=== PATIENT | female | born 1985 | race Caucasian/White ===

== ENCOUNTER 2019-08-25 17:04 | Emergency (ER) | payer OTHER, SELFPAY ==
--- NOTE | ~2019-08-25 | CT_ITS ---
EXAMINATION: CT abdomen pelvis w con DATE: 08/25/2019 18:38 INDICATION: Severe umbilical abdominal pain with nausea, vomiting and diarrhea. TECHNIQUE: Computed tomography (CT) of the abdomen and pelvis was performed with 100 mL Omnipaque-350 intravenous contrast. Automated exposure control and iterative reconstruction technique were employe d. The dose-length product was 389.09 mGy-cm. COMPARISON: 06/19/2017 FINDINGS: Lung bases are clear. Heart size is normal. No pericardial or pleural effusion. Bilateral breast impl ants. Liver, gallbladder, spleen, pancreas, bilateral adrenal glands and kidneys are normal. Bowels i ncluding the appendix are normal. Postoperative change of interval umbilical hernia mesh repair. Ther e are couple unchanged surgical clips in the anterior left abdomen. Uterus and right ovary are not vi sualized and reportedly surgically absent. The left ovary and decompressed bladder are normal. Trace amount of likely physiologic free fluid in the pelvis. No pathologically enlarged abdominal or pelvic lymphadenopathy. Couple bone islands at the intertrochanteric right femur and right supra-acetabular ilium. Bones are otherwise unremarkable. IMPRESSION: 1. No acute intra-abdominal/pelvic process. Reviewed, dictated and finalized at location A. OR CLINICAL DATA ANALYST
[2019-08-25 17:12] VITALS: BP 136/89; PULSE 117; RESP 18; TEMP 36.4; O2SAT 100
[2019-08-25 17:26] LABS: Basophils Absolute Auto 0.1 K/mm3 (0.0-0.1); Basophils Percent Auto 0.4 % (0.2-1.2); Eosinophils Percent Auto 0.1 % (0-4.4); Hematocrit 40.1 % (37.0-47.0); Hemoglobin 13.6 g/dL (12.0-15.0); Immature Granulocyte Absolute 0.05 K/mm3 (0.00-0.031); Immature Granulocyte Percent A 0.4 % (0-0.5); Lymphocytes Absolute Auto 1.68 K/mm3 (0.9-3.2); Lymphocytes Percent Auto 11.8 % (18.3-44.2); Mean Corpuscular HGB Conc 33.9 g/dl (32-36); Mean Corpuscular Hemoglobin 28.4 pg (26-34); Mean Corpuscular Volume 83.7 fl (80-100); Mean Platelet Volume 9.7 fl (7.4-10.4); Monocytes Absolute Auto 0.7 K/mm3 (0.1-0.6); Monocytes Percent Auto 4.8 % (2.6-8.5); Neutrophils Absolute Auto 11.8 K/mm3 (1.3-6.7); Neutrophils Percent Auto 82.5 % (45.5-73.1); Platelet Count Result 307 k/mm3 (150-375); Red Blood Count 4.79 M/mm3 (4.2-5.4); Red Cell Distribution Width 12.5 % (11.5-14.5); White Blood Count 14.2 K/mm3 (4.5-10.0)
[2019-08-25 17:37] LABS: Alanine Aminotransferase 21 U/L (4-35); Albumin Level 4.6 g/dL (3.5-5.1); Alkaline Phosphatase 53 U/L (38-126); Aspartate Amino Transferase 25 U/L (14-36); Bilirubin,Total 0.4 mg/dL (0.2-1.3); Blood Urea Nitrogen 12 mg/dL (7-17); Calcium 9.4 mg/dL (8.4-10.2); Carbon Dioxide 23 mmol/L (22-30); Chloride 104 mmol/L (98-107); Estimated CRCL calculation 90 ml/min; Estimated Glomerular Filt Rate > 60; Glucose 99 mg/dL (65-105); Lipase 86 U/L (23-300); Potassium 3.8 mmol/L (3.4-5.0); Sodium 140 mmol/L (137-145)
[2019-08-25] MEDS: ONDANSETRON INJ 4 MG/2 ML VIAL IV PUSH (17:52)
[2019-08-25] MEDS: FAMOTIDINE 20 MG/2 ML VIAL IV PUSH (17:52)
[2019-08-25] MEDS: SODIUM CHLORIDE 0.9% IV 1,000 ML 999 ML IV CONT (17:52)
--- NOTE | 2019-08-25 17:52 | PC.NURSE ---
Pt states that she will not be able to provide a urine sample right now. I explained that we need the urine sample JENNY and pt said she would let nursing staff know as soon as she is able to go. IVF bolus started.
--- NOTE | 2019-08-25 18:11 | ED.ABDPAIN ---
HPI - Abdominal Pain General Chief Complaint: Abdominal Pain Stated Complaint: ABD PAIN-N/V/D Time Seen by Provider: 08/25/19 17:30 Source: patient Mode of arrival: ambulatory Limitations: no limitations History of Present Illness HPI narrative: This is a 33 year old female that presents to the ER for abdominal pain x 2 days. Reports intermittent crampy abdominal pain. Associated with nausea, vomiting, and diarrhea. Reports 3 episodes of vomiting today. Reports multiple episodes of diarrhea. Denies fever, recent antibiotic use, hematochezia, dysuria or hematuria. Related Data Home Medications Medication Instructions Recorded Confirmed buspirone mg 08/25/19 Allergies Allergy/AdvReac Type Severity Reaction Status Date / Time No Known Allergies Allergy Verified 08/25/19 17:05 Review of Systems Review of Systems: Narrative: CONSTITUTIONAL: Denies fever GASTROINTESTINAL: Reports abdominal pain, nausea, vomiting, and diarrhea. GENITOURINARY: Denies dysuria or hematuria. All systems reviewed & are unremarkable except as noted in HPI and below PMFSH Past Medical History Medical History (Updated 08/25/19 @ 18:58 by Valeria Zuñiga PA-C) Endometriosis Surgical History Surgical History (Updated 08/25/19 @ 18:19 by Valeria Zuñiga PA-C) H/O tubal ligation H/O: hysterectomy Family History Family History (Updated 06/29/17 @ 17:23 by DOCTOR UNKNOWN) Father Diabetes mellitus Family history of hypercholesterolemia Mother Hypertension Social History Social History Smoking status: Never smoker Second hand tobacco smoke exposure: No Alcohol intake: current Gender identity (if verbalized by the patient): Female Exam Narrative: Exam Narrative: GENERAL: Well-appearing, well-nourished, and in no acute distress. HEAD: Normocephalic, atraumatic. EYES: EOMI. CHEST: Clear to auscultation. No respiratory distress. No wheezes rales or rhonchi HEART: Regular rate and rhythm. No murmur heard. Normal peripheral pulses. ABDOMEN: Soft, nondistended, normal active bowel sounds. Mild tenderness to palpation throughout the abdomen, without guarding EXTREMITIES: Normal range of motion. No edema. SKIN: Warm, dry, no rash. NEURO: No focal deficits. Alert and oriented x3. PSYCH: Normal mood and affect Course Vital Signs Vital signs: Vital Signs Temperature 97.6 F 08/25/19 17:12 Pulse Rate 117 H 08/25/19 17:12 Respiratory Rate 18 08/25/19 17:12 Blood Pressure 136/89 08/25/19 17:12 Pulse Oximetry 100 08/25/19 17:12 Temperature 97.6 F 08/25/19 17:12 Pulse Rate 95 08/25/19 18:46 Respiratory Rate 19 08/25/19 18:46 Blood Pressure 128/79 08/25/19 18:46 Pulse Oximetry 98 08/25/19 18:46 MDM - Abdominal Pain MDM Narrative Medical decision making narrative: Patient presents the emergency department for abdominal pain, nausea and vomiting x2 days. She is afebrile and nontoxic-appearing. No recent antibiotic use. Mildly tachycardic upon arrival, which improved after IV fluids. CBC with mild leukocytosis to 14, otherwise no acute changes. No acute changes on metabolic panel. UA with signs of dehydration, no signs of infection. CT abdomen pelvis is without acute changes. Patient was instructed on care of viral gastroenteritis. She reports improvement after IV fluids, Zofran and Pepcid. She is to follow-up with primary care doctor. She was given warnings to return to the ER Lab Data Attestation: I reviewed the patient's lab results. Result diagrams: 08/25/19 17:21 08/25/19 17:21 Labs: Lab Results 08/25/19 08/25/19 08/25/19 Range/Units 17:21 17:21 18:16 WBC 14.2 H (4.5-10.0) K/mm3 RBC 4.79 (4.2-5.4) M/mm3 Hgb 13.6 (12.0-15.0) g/dL Hct 40.1 (37.0-47.0) % MCV 83.7 (80-100) fl MCH 28.4 (26-34) pg MCHC 33.9 (32-36) g/dl RDW 12.5 (11.5-14.5) % Plt Count 307 (150-375) k/mm3 MPV 9.7 (7.4-10.
[2019-08-25 18:29] LABS: Add Urine Microscopic? YES; Appearance Urine Clear (Clear); Bilirubin Urine Negative (Negative); Blood Urine Negative (Negative); Color Urine Yellow (Yellow); Glucose Urine UA Negative (Negative); Ketones Urine 2+ mg/dL (Negative); Leukocyte Esterase Ur Negative LEU/UL (Negative); Mucus Urine Heavy /lpf; Nitrate Urine Negative (Negative); Protein Urine 1+ mg/dL (Negative); RBC Urine 0-2 /hpf (0-2); Squamous Epithelial Cell Urine Many /hpf (Few); Urobilinogen Urine Negative mg/dL (<2.0); WBC Urine 0-3 /hpf
[2019-08-25 18:31] LABS: Specific Grav Ur 1.032 (1.001-1.035)
[2019-08-25 18:46] VITALS: BP 128/79; PULSE 95; RESP 19; O2SAT 98
[2019-08-25 19:36] VITALS: BP 134/81; PULSE 89; RESP 18; TEMP 36.3; O2SAT 100
== END 2019-08-25 19:38 | disposition home or self-care (01) ==
PROVIDERS: Emergency Medicine; Emergency Provider Emergency Medicine; PCP Physician Assistant
DX: K52.9 Noninfective gastroenteritis and colitis, unspecified (principal); N80.9 Endometriosis, unspecified
CPT/HCPCS: 36415; 74177; 80053; 81001; 81025; 83690; 85025; 96361; 96374; 96375; 99284; J0131; J2405; J7030; Q9967

== ENCOUNTER 2019-09-18 06:34 | Outpatient (CLI) | payer OTHER, SELFPAY ==
--- NOTE | ~2019-09-18 | NM_ITS ---
EXAMINATION: NM hepatobiliary wo pharm DATE: 09/18/2019 10:58 INDICATION: Right upper quadrant abdominal pain COMPARISON: CT dated 08/25/2019 TECHNIQUE: 5.1 mCi Tc-99m mebrofenin (Choletec) was administered intravenously. Scintigraphic images of the abdomen were obtained for one hour. At the 1 hour time point, the patient drank 8 oz Ensure, and imaging was continued for 60 minutes. Gallbladder ejection fraction was calculated by the technol ogremigio. FINDINGS: There is normal clearance of radiotracer from the blood pool. There is homogeneous tracer u ptake by the liver. Activity progresses to the bowel and gallbladder. The gallbladder ejection fract ion (GBEF) is 39%. Note that with this technique, normal GBEF >= 33%. IMPRESSION: 1. Normal hepatobiliary scan Reviewed, dictated and finalized at location A. E FURNACE OPERATOR
== END 2019-09-18 06:35 | disposition home or self-care (01) ==
PROVIDERS: PCP Physician Assistant; Visit Provider Physician Assistant
DX: R10.11 Right upper quadrant pain (principal)
CPT/HCPCS: 78226; A9537

== ENCOUNTER → 2020-01-06 10:31 | Outpatient (CLI) | payer OTHER, SELFPAY ==
--- NOTE | ~2020-01-06 | US_ITS ---
EXAMINATION: US thyroid DATE: 01/06/2020 11:32 INDICATION: Localized swelling, mass and lump at the neck. TECHNIQUE: Multiple ultrasound images of the thyroid were obtained. COMPARISON: None. FINDINGS: The right thyroid lobe measures 5.8 x 2.1 x 1.8 cm. The left thyroid lobe measures 5.2 x 1.9 x 1.7 c m. Thyroid isthmus measures 8 mm in thickness. There are couple solid wider than tall isoechoic nodul es in the inferior right thyroid with smooth margins and without echogenic foci (TI-RADS 4, moderatel y suspicious , FNA if >=1.5 cm, annual followup is >1 cm), each measuring 1.4 cm in maximal dimension . There is a third similar-appearing nodule both very small associated cystic component also TI RADS 4 and also 1.4 cm in maximal dimension at the right side of the thyroid isthmus. There is mildly coar sened texture and diffusely increased vascular flow on color Doppler throughout the thyroid. IMPRESSION: 1. Multinodular goiter with three TI RADS 4 nodules each measuring 1.4 cm in maximal dimension for wh ich annual ultrasound would be recommended. Reviewed, dictated and finalized at location A. IMPRESSION: 1. Multinodular goiter with three TI RADS 4 nodules each measuring 1.4 cm in ma ximal dimension for which annual ultrasound would be recommended.
== END ==
PROVIDERS: PCP Physician Assistant; Visit Provider Physician Assistant
DX: R22.1 Localized swelling, mass and lump, neck (principal); E04.2 Nontoxic multinodular goiter
CPT/HCPCS: 76536

== ENCOUNTER 2020-01-15 13:00 | Outpatient (CLI) | payer OTHER, SELFPAY ==
--- NOTE | ~2020-01-15 | US_ITS ---
EXAMINATION: US FNA w image guidance DATE: 01/15/2020 14:08 INDICATION: Nontoxic multinodular goiter TECHNIQUE: A time-out was performed to verify the patient's name, date of , and procedure to be performed . The procedure and its benefits and risks were discussed with the patient. Risks specifically discus sed included bleeding and infection. The patient understood the risks and agreed to proceed. The neck was prepped and draped in the usual sterile manner. 4 mL 1% lidocaine was used for local anesthesia . 6 passes were made with a 25G needle into the lesion. Appropriate needle location was documented with continuous sonographic guidance. The specimens were passed to the supervisor microbiology technologists in the room. A sterile bandage was applied. There were no immediate complications. FINDINGS: Again seen are several solid isoechoic nodules as previously detailed. The nodule previous identified at the inferior right thyroid appears either longer on the longitudinal images measuring 2.5 cm or t his could also represent a second 1.5 cm nodule closely apposed along its superior margin. This nodul e/nodules was chosen for biopsy. Subsequent images demonstrate biopsy needles advanced into both the cephalad and caudal nodules/portions of the nodule. IMPRESSION: 1. Successful ultrasound-guided fine needle aspiration of a solid isoechoic 2.5 cm nodule versus two closely apposed 1.4 cm and 1.5 m nodules at the inferior right thyroid. Reviewed, dictated and finalized at location A. IMPRESSION: 1. Successful ultrasound-guided fine needle aspiration of a solid isoechoic 2. 5 cm nodule versus two closely apposed 1.4 cm and 1.5 m nodules at the inferior right thyroid.
== END 2020-01-15 13:01 | disposition home or self-care (01) ==
PROVIDERS: PCP Physician Assistant; Visit Provider Physician Assistant
DX: E04.2 Nontoxic multinodular goiter (principal)
CPT/HCPCS: 10005; 88173; 88305

== ENCOUNTER → 2020-11-04 14:14 | Outpatient (CLI) | payer OTHER, SELFPAY ==
--- NOTE | ~2020-11-04 | XR_ITS ---
EXAMINATION: XR hip BI wo pelvis, XR sacroiliac joints min 3V DATE: 11/04/2020 14:49 INDICATION: Polyarthralgia. Raynaud's disease without gangrene. TECHNIQUE: 1. Anteroposterior view of the pelvis and anteroposterior and frog-leg lateral views of the left hip and anteroposterior and frog-leg lateral views of the right hip were obtained. 2. AP and left and right oblique views of the sacroiliac joints were obtained. COMPARISON: CT studies dated 11/21/2013 and 08/25/2019 FINDINGS: Alignment is normal. No fracture or suspected avascular necrosis. Bilateral hip and sacroiliac joint spaces are normal. No interval change in chronic sclerotic bone islands in the supra-acetabular right ilium and intertrochanteric proximal right femur. Round likely tubal ligation rings in the left and right pelvis. IMPRESSION: 1. Normal bilateral hip and sacroiliac joints. Reviewed, dictated and finalized at location A. IMPRESSION: 1. Normal bilateral hip and sacroiliac joints.
== END ==
PROVIDERS: PCP Physician Assistant; Visit Provider Physician Assistant
DX: M25.50 Pain in unspecified joint (principal); I73.00 Raynaud's syndrome without gangrene
CPT/HCPCS: 72202; 73521

== ENCOUNTER → 2021-01-01 09:26 | Outpatient (CLI) | payer OTHER, SELFPAY ==
--- NOTE | ~2021-01-01 | US_ITS ---
EXAMINATION: US thyroid DATE: 01/01/2021 09:44 INDICATION: Nontoxic single thyroid nodule TECHNIQUE: Multiple ultrasound images of the thyroid were obtained. COMPARISON: 01/06/2020 FINDINGS: The right thyroid lobe measures 5.9 x 1.6 x 1.8 cm. The left thyroid lobe measures 5.3 x 1.6 x 1.5 c m. Thyroid isthmus measures 6 mm thickness. In the right thyroid lobe there are 3 separate solid thyr oid nodules with similar imaging features, all wider than tall, isoechoic with smooth margins and wit hout echogenic foci (TI-RADS 3, mildly suspicious , FNA if >=2.5 cm, annual followup is >=1.5 cm). Th cecilia measure 1.4 cm, 1.3 cm and 9 mm in maximal diameters. There is mildly heterogeneous echogenicity and diffuse increased vascular flow throughout the thyroid on color Doppler. IMPRESSION: 1. No significant interval change in three solid isoechoic TI RADS 3 nodules in the right thyroid lob e, the largest measuring 1.4 cm which remains below consensus criteria for either biopsy or follow-up . Reviewed, dictated and finalized at location A. IMPRESSION: 1. No significant interval change in three solid isoechoic TI RADS 3 nodules in the right thyroid lobe, the largest measuring 1.4 cm which remains below conse nsus criteria for either biopsy or follow-up.
== END ==
PROVIDERS: PCP Physician Assistant; Visit Provider Otolaryngology
DX: E04.1 Nontoxic single thyroid nodule (principal)
CPT/HCPCS: 76536

== ENCOUNTER → 2021-07-26 14:31 | Outpatient (CLI) | payer OTHER, SELFPAY ==
--- NOTE | ~2021-07-26 | MR_ITS ---
EXAMINATION: MR brain/brain stem wo/w con DATE: 07/26/2021 15:28 INDICATION: New daily persistent headache. TECHNIQUE: Magnetic resonance imaging (MRI) of the brain and brainstem was performed without and with 14 mL MultiHance intravenous contrast. Sequences included sagittal and axial T1-weighted FSE, axial diffusion-weighted FS EPI, axial T2*-weighted GRE, axial T2-weighted FLAIR Propeller, and axial T2-we ighted Propeller. Postcontrast sequences included axial and coronal T1-weighted FSE. Apparent diffusi on coefficient (ADC) maps were created. COMPARISON: None. FINDINGS: There is no intracranial hemorrhage, acute infarction, or abnormal intracranial mass lesion . The ventricles are normal in size. There is mild mucosal thickening in the ethmoid sinuses. The orb its are normal. The mastoid air cells are normal. IMPRESSION: 1. Normal brain. Reviewed, dictated and finalized at location B. SIZER IMPRESSION: 1. Normal brain.
[2021-07-26 14:59] LABS: Estimated Glomerular Filt Rate > 60
== END ==
PROVIDERS: Visit Provider Physician Assistant
DX: G44.52 New daily persistent headache (NDPH) (principal)
CPT/HCPCS: 70553; A9577

== ENCOUNTER → 2022-08-31 10:10 | Outpatient (CLI) | payer OTHER, SELFPAY ==
--- NOTE | ~2022-08-31 | US_ITS ---
EXAMINATION: US pelvic complete DATE: 08/31/2022 10:37 INDICATION: Pelvic pain, prior hysterectomy and right oophorectomy TECHNIQUE: Multiple transabdominal and endovaginal sonographic images of the pelvis were obtained. COMPARISON: None. FINDINGS: The uterus is surgically absent. The right ovary is not visualized however no right adnexal abnormality is seen. The left ovary measures 3.1 x 1.8 x 3.6 cm. There is normal vascular flow in th e left ovary. There is no free fluid in the pelvis. IMPRESSION: 1. No sonographic correlate for the patient's symptoms. Reviewed, dictated and finalized at location B. UCTION CONSULTANT
== END ==
PROVIDERS: PCP Physician Assistant; Visit Provider Obstetrics & Gynecology
DX: R10.2 Pelvic and perineal pain (principal)
CPT/HCPCS: 76856

== ENCOUNTER 2022-10-07 13:20 | Outpatient (CLI) | payer OTHER, SELFPAY ==
--- NOTE | 2022-10-07 14:54 | ECG_ITS ---
Measurements Intervals [place] Rate: 81 P: 76 WV: 161 QRS: 77 QRSD: 85 T: 70 QT: 369 QTc: 430 Interpretive Statements SINUS RHYTHM WITH SINUS ARRHYTHMIA POSSIBLE LEFT ATRIAL ENLARGEMENT BASELINE ARTIFACT- I, II, III, AVR, AVL, AVF BORDERLINE ECG NO PREVIOUS ECG AVAILABLE FOR COMPARISON Electronically Signed On 10-07-2022 15:30:02 CDT by Aaron Lewis D.O.
[2022-10-07 16:01] LABS: Anion Gap 5 mmol/L (8-16); Blood Urea Nitrogen 13 mg/dL (7-17); Calcium 8.4 mg/dL (8.4-10.2); Carbon Dioxide 31 mmol/L (22-30); Chloride 102 mmol/L (98-107); Estimated Glomerular Filt Rate > 60; Glucose 94 mg/dL (65-110); Sodium 138 mmol/L (137-145)
[2022-10-07 16:14] LABS: Potassium 3.1 mmol/L (3.4-5.0)
== END 2022-10-07 13:21 | disposition home or self-care (01) ==
PROVIDERS: Anesthesiology; PCP Physician Assistant; Visit Provider Obstetrics & Gynecology
DX: N80.9 Endometriosis, unspecified (principal); I10 Essential (primary) hypertension; Z79.899 Other long term (current) drug therapy; Z01.818 Encounter for other preprocedural examination
CPT/HCPCS: 36415; 80048; 86850; 86900; 86901; 93005

== ENCOUNTER 2022-10-14 00:31 | Day surgery (SDC) | payer OTHER, SELFPAY ==
[2022-10-05 12:22] VITALS: BMI 23.3
--- NOTE | 2022-10-05 12:27 | PC.NURSE ---
Report to the Outpatient Waiting Room, entrance under the green pavilion located off [facility], at time 11:30 on date 10/14/22. Planned Procedure Time: 1:30. Time changes happen often and if your time is changed the preop area will call you the afternoon before. - You and your visitor will be asked to self-screen and do not enter if you have any COVID symptoms. - Only one visitor is requested with a max of two and NO children visitors are allowed at this time. - The patient visitor may be requested to leave or wait in car when not with patient due to distancing restrictions. - A mask is optional within the hospital at this time. Patients may have clear liquids (water, carbonated beverages, clear teas, apple juice) until 3 hours prior to surgery (10:30) with a maximum of 20 ounces. - No food from midnight until time of surgery Take the following medications with a SIP of water the morning of surgery: BUSPIRONE, SYNTHROID DO NOT STOP ANY OF YOUR OTHER PRESCRIPTION MEDICATIONS PRIOR TO SURGERY?EXCEPT THE FOLLOWING Medications to discontinue per physician: N/A Date to take last dose: N/A Please no make-up, nail chinese, hairspray, perfume, deodorant, or body powder the day of surgery. No jewelry (including any body piercings) or valuables the day of surgery, leave them at home. Please take a shower or bath the night before, or the morning of, surgery with an antibacterial soap. Wear comfortable, loose fitting clothing. - Jewelry must be removed prior to entering the operating room. Rings and piercings that are not removed may be cut off. - The hospital will not accept responsibility for valuables. - Please leave all valuables, including medications, at home the day of surgery. If you are going home after surgery, a licensed helper driver must drive you home. - NO public transportation without another adult if you receive anesthesia. - We recommend that an adult stay with you for 24 hours following discharge. - We also recommend that you do not drive, make important decision, drink alcoholic beverages, or take any drugs that were not prescribed by your health care provider for at least 24 hours after your discharge time. Follow any additional instructions given to you from your surgeon. If you or anyone in your household have experienced Covid symptoms in the past week, please notify your surgeon or the nurse liaison at the phone number below for possible testing. Telephone instructions given to MICHAEL GRIMM and asked if any additional questions and then verbalized understanding. Patient advised to call surgeon office or pre surgery nurse liaison [phone] if any additional questions.
--- NOTE | 2022-10-12 16:26 | PM.IMHP ---
H&P: HPI History of Present Illness Date/Time: 10/12/22 16:26 Chief Complaint: Pelvic pain, history of endometriosis- Narrative: 36-year-old female status post hysterectomy and bilateral salpingectomy with severe pelvic pain. She has a known history of endometriosis and her pain has become unbearable. She is unable have intercourse and has chronic pelvic pain which appears cyclic. Risks and benefits of the procedure reviewed including not exclusive of , aspiration pneumonia, bleeding, transfusion, perforation injury to bowel, bladder, ureters, or other internal organs with need for open laparotomy. She received the ACOG handout entitled laparoscopy. She had all questions answered. She asked to proceed PMFSH Past Medical History Medical History Endometriosis Surgical History Surgical History H/O tubal ligation H/O: hysterectomy Family History Family History Father Diabetes mellitus Family history of hypercholesterolemia Mother Hypertension Social History Social History Smoking status: Never smoker Second hand tobacco smoke exposure: No Alcohol intake: current Alcohol use details: RARE Substance use: never Substance use type: does not use Living arrangements: with family Gender identity (if verbalized by the patient): Female Spiritual care concerns: No Meds Home Medications and Allergies Home Medications Medication Instructions Recorded Confirmed Type buspirone 15 mg tablet 15 mg PO BID 10/05/22 10/05/22 History cetirizine 10 mg tablet (Zyrtec) 10 mg PO DAILY 10/05/22 10/05/22 History hydrochlorothiazide 12.5 mg tablet 12.5 mg PO DAILY 10/05/22 10/05/22 History hydroxychloroquine 200 mg tablet 300 mg PO DAILY 10/05/22 10/05/22 History levothyroxine 75 mcg tablet 75 mcg PO DAILY 10/05/22 10/05/22 History (Synthroid) Allergies Allergy/AdvReac Type Severity Reaction Status Date / Time No Known Allergies Allergy Verified 10/05/22 12:20 Exam Const: General: cooperative, healthy appearing, comfortable, well groomed and average body habitus Orientation/consciousness: oriented to person, oriented to place and oriented to time Resp: Effort & Inspection: normal respiratory effort Cardio: Rate: regular rate Rhythm: regular rhythm Heart sounds: S1 normal heart sound present and S2 normal heart sound present GI: Inspection: normal to inspection Auscultation: normal bowel sounds : External Female Exam: normal external appearance Speculum Exam - Vagina: normal appearance of the vagina Speculum Exam - Cervix: Cervix absent Bimanual exam- vagina & uterus: uterus absent Bimanual Exam- Adnexa, other: tender bilaterally Assessment and Plan Assessment and plan (1) Pelvic pain: Code(s): R10.2 - Pelvic and perineal pain Status: Acute Plan Diagnostic laparoscopy with suspected destruction of endometriosis
[2022-10-14] VITALS (7 sets, daily range): BP systolic 114–127; BP diastolic 74–91; PULSE 73–118; RESP 14–20; TEMP 36.1–36.9; O2SAT 100
--- NOTE | 2022-10-14 05:25 | WPDHPUPDATE1 ---
History and Physical Update Update Date/Time: 10/14/22 05:25 History and Physical has been reviewed, including an updated exam of the patient. There are NO changes in the patient's condition. Risks, benefits, and alternatives have been discussed and questions answered. Patient agrees to proceed with procedure.
[2022-10-14] MEDS: ACETAMINOPHEN 500 MG TABLET 1000 MG PO (11:39)
[2022-10-14] MEDS: SCOPOLAMINE 1.5 MG PATCH TRANSDERM (11:40)
[2022-10-14] MEDS: LACTATED RINGERS 1,000 ML 30 ML IV CONT ×2 (11:45→14:20)
[2022-10-14] MEDS: KETOROLAC 15 MG/ML VIAL (*BKC) IV PUSH (11:48)
--- NOTE | 2022-10-14 12:24 | WPDANESEPPF ---
Anes - Initial Pre Proc Eval Procedure: Operation Date: 10/14/22 13:30 Proposed Procedures p Diagnostic Laparoscopy with Cautery of Endometriosis - Faraz Gonzalez MD Date/Time: 10/14/22 12:24 Surgeon: Faraz Gonzalez MD Pre Op Diagnosis: Pelvic Pain, Endometriosis Patient Data Age: 37 Gender: F Height: 1.68 m Weight: 65.77 kg Allergies Allergy/AdvReac Type Severity Reaction Status Date / Time No Known Allergies Allergy Verified 10/14/22 11:37 Home Medications Medication Instructions Recorded Confirmed Type buspirone 15 mg tablet 15 mg PO BID 10/05/22 10/14/22 History cetirizine 10 mg tablet (Zyrtec) 10 mg PO DAILY 10/05/22 10/14/22 History hydrochlorothiazide 12.5 mg tablet 12.5 mg PO DAILY 10/05/22 10/14/22 History hydroxychloroquine 200 mg tablet 300 mg PO DAILY 10/05/22 10/14/22 History levothyroxine 75 mcg tablet 75 mcg PO DAILY 10/05/22 10/14/22 History (Synthroid) hydrocodone 5 mg-acetaminophen 325 1 tablet PO Q4H PRN pain #20 tabs 10/14/22 Rx mg tablet Patient hx anesthesia problems: none Family hx anesthesia problems: none Results Review: All pre-operative results and documents have been reviewed as part of the pre-operative evaluation. [facility] Past Medical History Medical History (Updated 10/14/22 @ 12:25 by Faraz Hillman MD) Endometriosis Hadley's thyroiditis Surgical History Surgical History H/O tubal ligation H/O: hysterectomy Family History Family History Father Diabetes mellitus Family history of hypercholesterolemia Mother Hypertension Social History Social History Smoking status: Never smoker Second hand tobacco smoke exposure: No Alcohol intake: current Alcohol use details: RARE Substance use: never Substance use type: does not use Living arrangements: with family Gender identity (if verbalized by the patient): Female Spiritual care concerns: No Anes - Eval Final PreProcedure Day of Procedure 10/14/22 12:24 Patient weight: normal Heart: regular rate and rhythm Lungs: clear to auscultation Airway: Mallampati scale class II Neurological: alert and oriented Last oral intake: >/= 8 hours ASA classification: II Emergent: no Anesthetic plan: proceed Anesthesia type and monitoring: general ETT and standard monitoring Results Review: All pre-operative results and documents have been reviewed as part of the pre-operative evaluation. Informed Consent: The patient's anesthetic plan and its attendant risks and benefits were discussed with the patient/family/POA. Questions were solicited and answers provided to the satisfaction of the patient/family/POA.
--- NOTE | 2022-10-14 12:36 | WPDANESPNB ---
Anes - Peripheral Nerve Block Date/Time: 10/14/22 12:36 I have discussed with the patient/family/POA the placement of a peripheral nerve block for post-operative pain management, including associated risks, benefits, complications, and side effects. Alternative methods of post-operative analgesia were detailed. Questions were solicited and answers provided to the satisfaction of the patient/family/POA. Time-Out: A pre-procedural Time-Out was completed immediately before starting the procedure and confirmed: Patient Identification, Site, Procedure, Patient Position and the Availability of Requisite Equipment. Clinical Indications: Acute post-operative pain management requested by the operative surgeon. Nerve Block Insertion Note Anes-nerve block: interscalene right Patient position: supine Skin prep: chlorhexidine Needle: 22 gauge, stimulating, insulated echogenic needle. Needle length: 50 mm Technique: nerve stimulation lost at (mA) (0.3) and ultrasound Injectate: bupivacaine 0.5% with epi 5 mcg/ml (30cc no epi) and dexamethasone (mg) (8) Observations: tolerated well Complications: none Procedure start time:: 1228 Procedure end time:: 1234
--- NOTE | 2022-10-14 13:28 | W.PM.PROC2 ---
Procedure Note - Detailed Date of Procedure 10/14/22 Pre-op Diagnosis Pelvic Pain, Endometriosis Left ovarian cyst Post-op Diagnosis Same Procedure Performed laparoscopy with destruction of left ovarian cyst and endometriosis Surgeon Faraz Gonzalez MD Anesthesia General Indications this is a 37-year-old female status post Hyst an RSO who is admitted for laparoscopy with the cystectomy destruction of endometriosis secondary 2 pain Findings absent uterus right ovary and tube absent left tube left hemorrhagic cyst. Endometriosis on the right uterosacral ligament and vaginal cuff Description of Procedure patient was prepped draped sterile fashion placed in the dorsal lithotomy position. Under excellent general trach anesthesia weighted speculum placed posterior fornix. a sponge stick was placed in the vagina. Bladder was emptied of clear urine the weighted speculum was. Gloves were changed. A supraumbilical incision made the Veress needle passed in the abdomen. Abdomen filled with CO2 gas [id number]. The 5mm trocar advanced under direct visualization assuring no injury. Patient placed in 20? Trendelenburg and a suprapubic incision made. The 5mm trocar advanced under direct visualization the above findings were noted there was approximately 30-40 cc of serosanguineous fluid this was removed then irrigated. The left hemorrhagic cyst was seen but the ovary appeared grossly within normal limits otherwise this was drained of clear fluid irrigated again. Areas of endometriosis were seen along the vaginal cuff in the right uterosacral ligament these were cauterized at 35 w per 2nd irrigated. No other abnormalities were seen the appendix appeared within normal limits. The lower site withdrawn. The gas removed from the abdomen the upper site. The incisions closed with 4 Monocryl and glue and the patient was awakened. She went to recovery in satisfactory condition. All sponge, needle, instrument counts were correct. There were no complications noted Estimated Blood Loss 5 Drains No Packing No Pathology None sent Complications No immediate complications Condition Stable Disposition PACU
[2022-10-14] MEDS: fentaNYL CITRATE INJ (*CRX) 100 MCG/2 ML VIAL 25 MCG IV PUSH ×5 (13:49→14:38)
[2022-10-14] MEDS: oxyCODONE HCL (*CRX) 5 MG TAB IR PO (14:38)
== END 2022-10-14 15:15 | disposition home or self-care (01) ==
PROVIDERS: PCP Physician Assistant; Visit Provider Obstetrics & Gynecology
PROC: (CPT 49320; principal; 2022-10-14 13:30)
DX: N80.3C1 Endometriosis of the right uterosacral ligament, unspecified depth (principal); N80.8 Other endometriosis; N83.202 Unspecified ovarian cyst, left side; R10.2 Pelvic and perineal pain; Z90.710 Acquired absence of both cervix and uterus; E06.3 Autoimmune thyroiditis
CPT/HCPCS: 58662; 36415; 80048; 86850; 86900; 86901; 93005; A9270; J1100; J1885; J2250; J2405; J2704; J2710; J3010; J7030; J7120

== ENCOUNTER → 2023-01-13 07:49 | Outpatient (CLI) | payer OTHER, SELFPAY ==
--- NOTE | ~2023-01-13 | US_ITS ---
Thyroid ultrasound. Clinical History: Multinodular goiter COMPARISON: 01/01/2021 Findings: Real-time sonography of the thyroid gland was performed. The right lobe measures 5.5 x 1.6 x 1.8 cm. The left lobe measures 5.9 x 1.5 x 1.5 cm. The isthmus is 5 mm in AP diameter. There is an isoechoic ovoid nodule at the right lower pole measuring 1.4 x 1.2 x 0.9 cm. There is an additional isoechoic posterior nodule the right midpole measuring 0.9 cm in diameter. There is a 1.9 x 0.9 x 1.4 cm isoechoic to hyperechoic nodule at the right side of the isthmus. There is a 1.1 x 0.6 x 0.9 cm oval nodule at the left side of the isthmus. There is an isoechoic 1.1 cm nodule at the left lower pole. Impression: Bilateral thyroid nodules, as detailed above, similar to prior exam.. Reviewed, dictated and finalized at location . Impression: Bilateral thyroid nodules, as detailed above, similar to prior exam..
== END ==
PROVIDERS: PCP Physician Assistant; Visit Provider Otolaryngology
DX: E04.2 Nontoxic multinodular goiter (principal)
CPT/HCPCS: 76536

== ENCOUNTER 2024-02-14 08:01 | Outpatient (CLI) | payer OTHER, SELFPAY ==
--- NOTE | ~2024-02-14 | XR_ITS ---
EXAMINATION: XR chest 2V DATE: 02/14/2024 08:15 INDICATION: Hyperhidrosis. Night sweats. TECHNIQUE: Frontal and lateral views of the chest were obtained. COMPARISON: None. FINDINGS: There is mild scarring at the lung apices. No pleural effusion or pneumothorax. The heart s ize is normal. Breast implants are noted. IMPRESSION: 1. Mild scarring at the lung apices. Reviewed, dictated and finalized at location A.
== END 2024-02-14 08:02 ==
LOC: MICIMG 08:03
PROVIDERS: PCP Physician Assistant; Visit Provider Physician Assistant
DX: R61 Generalized hyperhidrosis (principal); R91.8 Other nonspecific abnormal finding of lung field
CPT/HCPCS: 71046

== ENCOUNTER 2024-09-14 13:22 | Emergency (ER) | payer OTHER, SELFPAY ==
[2024-09-14 13:22] VITALS: BP 135/100; PULSE 134; RESP 18; TEMP 36.3; O2SAT 100
[2024-09-14 13:26] VITALS: BP 155/112; PULSE 133; RESP 18; TEMP 36.3; O2SAT 100
[2024-09-14 13:44] LABS: Add Urine Microscopic? NO; Appearance Urine Clear (Clear); Bilirubin Urine Negative (Negative); Blood Urine Negative (Negative); Color Urine Yellow (Yellow); Glucose Urine UA Negative (Negative); Ketones Urine Trace mg/dL (Negative); Leukocyte Esterase Ur Negative LEU/UL (Negative); Nitrate Urine Negative (Negative); Protein Urine Negative (Negative)
[2024-09-14 13:53] LABS: Alanine Aminotransferase 21 U/L (6-35); Albumin Level 4.7 g/dL (3.5-5.1); Alkaline Phosphatase 51 U/L (38-126); Anion Gap 13 mmol/L (4-12); Aspartate Amino Transferase 26 U/L (14-36); Bilirubin,Total 0.4 mg/dL (0.2-1.3); Blood Urea Nitrogen 11 mg/dL (7-17); Carbon Dioxide 24 mmol/L (22-30); Chloride 103 mmol/L (98-107); Estimated CRCL calculation 81 ml/min; Estimated Glomerular Filt Rate > 60; Glucose 105 mg/dL (65-110); Lipase 156 U/L (23-300); Potassium 3.8 mmol/L (3.4-5.0); Sodium 140 mmol/L (137-145)
[2024-09-14 15:03] LABS: Basophils Absolute Auto 0.1 K/mm3 (0.0-0.1); Basophils Percent Auto 0.6 % (0.2-1.2); Eosinophils Percent Auto 0.5 % (0-4.4); Hematocrit 38.3 % (37.0-47.0); Hemoglobin 12.8 g/dL (12.0-15.0); Immature Granulocyte Absolute 0.02 K/mm3 (0.00-0.031); Immature Granulocyte Percent A 0.2 % (0-0.5); Lymphocytes Absolute Auto 1.66 K/mm3 (0.9-3.2); Lymphocytes Percent Auto 19.1 % (18.3-44.2); Mean Corpuscular HGB Conc 33.4 g/dl (32-36); Mean Corpuscular Hemoglobin 29.6 pg (26-34); Mean Corpuscular Volume 88.7 fl (80-100); Mean Platelet Volume 10.4 fl (7.4-10.4); Monocytes Absolute Auto 0.5 K/mm3 (0.1-0.6); Neutrophils Absolute Auto 6.4 K/mm3 (1.3-6.7); Neutrophils Percent Auto 73.6 % (45.5-73.1); Platelet Count Result 339 k/mm3 (150-375); Red Blood Count 4.32 M/mm3 (4.2-5.4); Red Cell Distribution Width 12.5 % (11.5-14.5); White Blood Count 8.7 K/mm3 (4.5-10.0)
[2024-09-14 15:52] VITALS: BP 155/101; PULSE 103; RESP 16; TEMP 37; O2SAT 100
[2024-09-14] MEDS: ONDANSETRON INJ 4 MG/2 ML VIAL IV PUSH (17:08)
[2024-09-14] MEDS: MORPHINE SULFATE (*CRX) 4 MG/ML INJ IV PUSH (17:08)
--- NOTE | 2024-09-14 17:16 | ED.GENADULT ---
HPI - General Adult General Chief complaint: Abdominal Pain Stated complaint: abd pain Time Seen by Provider: 09/14/24 16:01 History of Present Illness HPI narrative: Patient is a 38-year-old female who presents ER with abdominal pain. Patient was watching her daughter play volleyball at 10:30 a.m. when she began have upset stomach in her epigastrium. She then went to run errands and pain moved down into her right lower quadrant. She has pain with any type of movement has difficulty finding a position of comfort. While sitting in the car and hitting bumps she would have extreme pain. Concerned she may have appendicitis. No nausea/vomiting. No diarrhea. Has history of endometriosis which is been ablated. She has had her right ovary removed. No complaints. Related Data Home Medications ?Medication ?Instructions ?Recorded ?Confirmed ?Last Taken ?Type buspirone 15 mg tablet 15 mg PO BID 10/05/22 10/14/22 10/14/22 07:30 History cetirizine 10 mg tablet (Zyrtec) 10 mg PO DAILY 10/05/22 10/14/22 10/13/22 History hydrochlorothiazide 12.5 mg tablet 12.5 mg PO DAILY 10/05/22 10/14/22 10/13/22 History hydroxychloroquine 200 mg tablet 300 mg PO DAILY 10/05/22 10/14/22 10/13/22 History levothyroxine 75 mcg tablet 75 mcg PO DAILY 10/05/22 10/14/22 10/14/22 05:30 History (Synthroid) Allergies Allergy/AdvReac Type Severity Reaction Status Date / Time No Known Allergies Allergy Verified 10/14/22 11:37 Review of Systems Review of Systems: All systems reviewed & are unremarkable except as noted in HPI and below Constitutional: Constitutional: Reports no additional constitutional complaints Cardiovascular: Cardiovascular: Reports no additional cardiovascular complaints Respiratory: Respiratory: Reports no additional respiratory complaints Gastrointestinal: Gastrointestinal: Reports no additional gastrointestinal complaints Genitourinary: Genitourinary: Reports no additional female genitourinary complaints [facility] Past Medical History Medical History (Updated 09/14/24 @ 17:40 by Orlin Amado MD) Hadley's thyroiditis Endometriosis Surgical History Surgical History H/O tubal ligation H/O: hysterectomy Family History Family History Father Diabetes mellitus Family history of hypercholesterolemia Mother Hypertension Social History Social History Smoking status: Never smoker Second hand tobacco smoke exposure: No Alcohol intake: current Alcohol use details: RARE Substance use: never Substance use type: does not use Living arrangements: with family Gender identity (if verbalized by the patient): Female Spiritual care concerns: No Exam Narrative: GENERAL: Uncomfortable-appearing, well-nourished, and in no acute distress. HEAD: Normocephalic, atraumatic. ENT: Mucous membranes moist. NECK: Supple. CHEST: Clear to auscultation. No respiratory distress. HEART: Regular rate and rhythm. Normal peripheral pulses. ABDOMEN: Soft, tender palpation right lower quadrant with guarding, nondistended. EXTREMITIES: Normal range of motion. No edema. SKIN: Warm, dry, no rash. NEURO: Alert and oriented x3. PSYCH: Normal mood and affect. Course Course Emergency Course: I have discussed the history/exam/lab and imaging findings with Dr. Leon with General surgery. Recommends IV Zosyn x1 here and discharged with Augmentin and anti-inflammatories. Early appendicitis verses of a plug appendagitis. A follow-up in clinic in 2 days return to the ER if symptoms worsen. Patient educated on diagnosis and treatment plan and verbalized understanding and agreement with plan. Will give a dose of Toradol here prior to discharge as well. Vital Signs Vital signs: Vital Signs Temperature 97.4 F L 09/14/24 13:22 Pulse Rate 134 H 09/14/24 13:22 Respiratory Rate 18 09/14/24 13:22 Blood Pressure 135/100 H 09/14/24 13:22 Pulse Oximetry 100 09/14/24 13:22 Temperature 98.6 F 09/14/24 15:52 Pulse Rate 103 H 09/14/24 15:52 Respiratory Rate 16 09/14/24 15:52 Blood Pressure 155/101 H 09/14/24 15:52 Pulse Oximetry 100 09/14/24 15:52 Medical Decision Making Vital Signs Vital Signs: Vital Signs Temperature 97.4 F L 09/14/24 13:22 Pulse Rate 134 H 09/14/24 13:22 Respiratory Rate 18 09/14/24 13:22 Blood Pressure 135/100 H 09/14/24 13:22 Pulse Oximetry 100 09/14/24 13:22 Temperature 98.6 F 09/14/24 15:52 Pulse Rate 103 H 09/14/24 15:52 Respiratory Rate 16 09/14/24 15:52 Blood Pressure 155/101 H 09/14/24 15:52 Pulse Oximetry 100 09/14/24 15:52 Lab Data 09/14/24 13:36 09/14/24 13:36 Labs: Lab Results 09/14/24 Range/Units 13:36 WBC 8.7 (4.5-10.0) K/mm3 RBC 4.32 (4.2-5.4) M/mm3 Hgb 12.8 (12.0-15.0) g/dL Hct 38.3 (37.0-47.0) % MCV 88.7 (80-100) fl MCH 29.6 (26-34) pg MCHC 33.4 (32-36) g/dl RDW 12.5 (11.5-14.5) % Plt Count 339 (150-375) k/mm3 MPV 10.4 (7.4-10.4) fl Immature Gran % (Auto) 0.2 (0-0.5) % Neut % (Auto) 73.6 H (45.5-73.1) % Lymph % (Auto) 19.1 (18.3-44.2) % [place]gs % (Auto) 6.0 (2.6-8.5) % Eos % (Auto) 0.5 (0-4.4) % Baso % (Auto) 0.6 (0.2-1.2) % Lymph # (Auto) 1.66 (0.9-3.2) K/mm3 [place]gs # (Auto) 0.5 (0.1-0.6) K/mm3 Eos # (Auto) 0.0 (0-0.3) K/mm3 Baso # (Auto) 0.1 (0.0-0.1) K/mm3 Abs Immat Gran (auto) 0.02 (0.00-0.031) K/mm3 Absolute Neuts (auto) 6.4 (1.3-6.7) K/mm3 Absolute Nucleated RBC 0.000 (0.0-0.012) K/mm3 Nucleated RBC % 0.0 (0.0-0.2) % Sodium 140 (137-145) mmol/L Potassium 3.8 (3.4-5.0) mmol/L Chloride 103 (98-107) mmol/L Carbon Dioxide 24 (22-30) mmol/L Anion Gap 13 H (4-12) mmol/L BUN 11 (7-17) mg/dL Creatinine 0.82 (0.7-1.0) mg/dL Estim Creat Clear Calc 81 ml/min Estimated GFR > 60 (59 - ) Glucose 105 (65-110) mg/dL Calcium 9.0 (8.4-10.2) mg/dL Total Bilirubin 0.4 (0.2-1.3) mg/dL AST 26 (14-36) U/L ALT 21 (6-35) U/L Alkaline Phosphatase 51 (38-126) U/L Total Protein 8.0 (6.3-8.2) g/dL Albumin 4.7 (3.5-5.1) g/dL Lipase 156 (23-300) U/L Urine Color Yellow (Yellow) Urine Appearance Clear (Clear) Urine pH 7.0 (5.0-9.0) Ur Specific [place] 1.020 (1.001-1.035) Urine Protein Negative (Negative) mg/dL Urine Glucose (UA) Negative (Negative) mg/dL Urine Ketones Trace H (Negative) mg/dL Ur Blood (Man) Negative (Negative) Urine Nitrate Negative (Negative) Urine Bilirubin Negative (Negative) Urine Urobilinogen 1.0 (<2.0) mg/dL Leukocyte Esterase Rfl Negative (Negative) CASSANDRA/UL Imaging Data Radiologist's impression: ITS Impressions Abdomen/Pelvis CT 09/14/24 14:18 IMPRESSION: 1. No evidence of diverticulitis or intestinal obstruction. 2. The appendix is not demonstrated. Inflammatory changes are seen in the right lower quadrant anterior to the psoas muscle which may be inflammatory. Follow-up and clinical correlation advised. 3. Left ovarian cyst measuring 2.7 cm. 4. Constipation.. Discharge Plan Discharge Clinical Impression: Acute right lower quadrant pain Patient Disposition: Home, Self-Care Condition: Stable Instructions: Antibiotic Form, Abdominal Pain (ED) Patient Language: [place] Prescriptions: New ondansetron 4 mg tablet,disintegrating 4 mg PO Q6H PRN (Reason: nausea and vomiting) Qty: 10 0RF amoxicillin-pot clavulanate 875-125 mg tablet 1 tablet PO Q12H Qty: 20 0RF No Action cetirizine [Zyrtec] 10 mg Tablet 10 mg PO DAILY levothyroxine [Synthroid] 75 mcg Tablet 75 mcg PO DAILY hydroxychloroquine 200 mg tablet 300 mg PO DAILY buspirone 15 mg Tablet 15 mg PO BID hydrochlorothiazide 12.5 mg tablet 12.5 mg PO DAILY hydrocodone-acetaminophen 5-325 mg tablet 1 tablet PO Q4H PRN (Reason: pain) Qty: 20 0RF Follow-up/Referrals: Alhaji Leon MD [Physician] - 3 Days
[2024-09-14] MEDS: PIPERACILLN/TAZ 3.375GM/NS50ML 3.375 GM/50 ML BAG IVPB (17:44)
[2024-09-14] MEDS: KETOROLAC 30 MG/ML VIAL (*BKC) IV PUSH (17:44)
[2024-09-14 18:21] VITALS: BP 150/96; PULSE 97; RESP 16; O2SAT 100
== END 2024-09-14 18:19 | disposition home or self-care (01) ==
PROVIDERS: Emergency Medicine; Emergency Provider Emergency Medicine; PCP Physician Assistant
DX: R10.31 Right lower quadrant pain (principal); E06.3 Autoimmune thyroiditis; N80.9 Endometriosis, unspecified; Z90.710 Acquired absence of both cervix and uterus; Z90.721 Acquired absence of ovaries, unilateral; Z79.899 Other long term (current) drug therapy; N83.202 Unspecified ovarian cyst, left side; K59.00 Constipation, unspecified
CPT/HCPCS: 36415; 74177; 80053; 81003; 83690; 85025; 96365; 96375; 99284; J1885; J2270; J2405; J2543; Q9967

== ENCOUNTER 2025-01-17 09:22 | Emergency (ER) | payer OTHER, SELFPAY ==
[2025-01-17 09:31] VITALS: BP 143/104; PULSE 91; RESP 18; TEMP 36.4; O2SAT 99
--- NOTE | 2025-01-17 09:49 | ED_ITS ---
HPI - General Adult General Chief complaint: Ear Stated complaint: Both Ears Irritation Source: patient Mode of arrival: ambulatory Limitations: no limitations History of Present Illness HPI narrative: Patient presents for evaluation of left ear pain. Symptom onset about 1 day ago. Last night she detected a lesion in the left ear. She describes it as a pimple the erupted some purulent discharge. She denies any hearing loss or tinnitus. This morning she woke from sleep with right-sided lymphadenopathy. She denies any fever, chills, sore throat, cough. Related Data Home Medications ?Medication ?Instructions ?Recorded ?Confirmed ?Last Taken ?Type buspirone 15 mg tablet 15 mg PO BID 10/05/22 09/23/24 10/14/22 07:30 History cetirizine 10 mg tablet (Zyrtec) 10 mg PO DAILY 10/05/22 09/23/24 10/13/22 History hydrochlorothiazide 12.5 mg tablet 12.5 mg PO DAILY 10/05/22 09/23/24 10/13/22 History hydroxychloroquine 200 mg tablet 300 mg PO DAILY 10/05/22 09/23/24 10/13/22 History levothyroxine 75 mcg tablet 75 mcg PO DAILY 10/05/22 09/23/24 10/14/22 05:30 History (Synthroid) Allergies Allergy/AdvReac Type Severity Reaction Status Date / Time No Known Allergies Allergy Verified 01/17/25 09:31 Review of Systems Review of Systems: CONSTITUTIONAL: Denies fever, chills, or sweats. EYES: Denies visual changes, redness, or discharge. ENT: Reports left ear pain and right sided lymphadenopathy. Denies rhinorrhea, congestion, and sore throat. CARDIOVASCULAR: Denies chest pain, palpitations, or edema. RESPIRATORY: Denies cough or dyspnea. GASTROINTESTINAL: Denies abdominal pain, nausea, vomiting, or diarrhea. GENITOURINARY: Denies dysuria or hematuria. SKIN: reports lesion in left ear canal that was recently draining. MUSCULOSKELETAL: Denies back pain, joint pain, or myalgia. NEUROLOGIC: Denies headache, numbness, dizziness, or weakness. PSYCHIATRIC: Denies anxiety or depression. [facility] Past Medical History Medical History (Updated 01/17/25 @ 09:53 by Vinny Briceno, [employer] DEVELOPER, ) Connective tissue disorder Anxiety Hadley's thyroiditis Endometriosis Surgical History Surgical History H/O: hysterectomy H/O tubal ligation Family History Family History Father Diabetes mellitus Family history of hypercholesterolemia Hypertension Mother Hypertension Grandparent Cancer Diabetes mellitus Hypertension Heart disease Thyroid disease Other Asthma Social History Social History Smoking status: Never smoker Second hand tobacco smoke exposure: No Alcohol intake: current Alcohol use details: RARE Substance use: never Substance use type: does not use Do You Feel Safe in your Home?: Yes Lack of Transportation: No Lack of Food: Never True Current Housing: I Have Housing Concerned About Future Housing: No Difficulty Paying Gas/Electric Bills: No Difficulty Paying for Meds: No Currently Unemployed: No Education: Associate Degree Difficulty w/ Childcare or Family Care: No Living arrangements: with family Gender identity (if verbalized by the patient): Female Spiritual care concerns: No Exam Narrative: GENERAL: Well-appearing, well-nourished, and in no acute distress. HEAD: Normocephalic, atraumatic. EYES: PERRLA and EOMI. ENT: Nares clear, no rhinorrhea or epistaxis. Mucous membranes moist. Oropharynx without tonsillar hypertrophy exudate or other lesions. Bilateral TMs pearly feliz nonbulging NECK: Supple. No adenopathy or masses. No carotid bruits or JVD CHEST: Clear to auscultation. No respiratory distress. No wheezes rales or rho nchi HEART: Regular rate and rhythm. No murmur heard. Normal peripheral pulses. ABDOMEN: Soft, nontender, nondistended, normal active bowel sounds. EXTREMITIES: Normal range of motion. No edema. SKIN: There is dried serosanguinous drainage in left ear canal. Warm, dry, no rash. NEURO: No focal deficits. Alert and oriented x3. PSYCH: Normal mood and affect. Course Course Emergency Course: This is a 39-year-old female who presented for evaluation of pain in the left ear associated with the lesion that has already erupted. Will discharge with ofloxacin and Augmentin. She should follow-up with her primary care provider and go to the emergency for worsening symptoms. Patient is in agreement with plan of care. Level of Care: Express Care Visit Vital Signs Vital signs: Vital Signs Temperature 36.4 C L 01/17/25 09:31 Pulse Rate 91 01/17/25 09:31 Respiratory Rate 18 01/17/25 09:31 Blood Pressure 143/104 H 01/17/25 09:31 Pulse Oximetry 99 01/17/25 09:31 Oxygen Delivery Room Air 01/17/25 09:31 Temperature 36.4 C L 01/17/25 09:31 Pulse Rate 91 01/17/25 09:31 Respiratory Rate 18 01/17/25 09:31 Blood Pressure 143/104 H 01/17/25 09:31 Pulse Oximetry 99 01/17/25 09:31 Oxygen Delivery Room Air 01/17/25 09:31 Medical Decision Making Vital Signs Vital Signs: Vital Signs Temperature 36.4 C L 01/17/25 09:31 Pulse Rate 91 01/17/25 09:31 Respiratory Rate 18 01/17/25 09:31 Blood Pressure 143/104 H 01/17/25 09:31 Pulse Oximetry 99 01/17/25 09:31 Oxygen Delivery Room Air 01/17/25 09:31 Temperature 36.4 C L 01/17/25 09:31 Pulse Rate 91 01/17/25 09:31 Respiratory Rate 18 01/17/25 09:31 Blood Pressure 143/104 H 01/17/25 09:31 Pulse Oximetry 99 01/17/25 09:31 Oxygen Delivery Room Air 01/17/25 09:31 Discharge Plan Discharge Clinical Impression: Earlobe lesion Patient Disposition: Home Condition: Stable Instructions: Antibiotic Form, Earache (ED) Patient Language: Sami Prescriptions: New amoxicillin-pot clavulanate 875-125 mg tablet 1 tablet PO Q12H Qty: 20 0RF ofloxacin 0.3 % drops 10 drp LEFT EAR Q12H 7 Days Qty: 5 0RF No Action cetirizine [Zyrtec] 10 mg Tablet 10 mg PO DAILY levothyroxine [Synthroid] 75 mcg Tablet 75 mcg PO DAILY hydroxychloroquine 200 mg tablet 300 mg PO DAILY buspirone 15 mg Tablet 15 mg PO BID hydrochlorothiazide 12.5 mg tablet 12.5 mg PO DAILY Follow-up/Referrals: Monae,COLE Villatoro [Primary Care Provider] - Time of Disposition: 09:48
== END 2025-01-17 09:53 | disposition home or self-care (01) ==
PROVIDERS: Emergency Provider Nurse Practitioner; PCP Physician Assistant
DX: H61.892 Other specified disorders of left external ear (principal); L94.9 Localized connective tissue disorder, unspecified; E06.3 Autoimmune thyroiditis; N80.9 Endometriosis, unspecified; F41.9 Anxiety disorder, unspecified
CPT/HCPCS: 99213; G0463